=== PATIENT | female | born 1955 | race Asian ===

== ENCOUNTER 2019-08-06 11:21 | Emergency (ER) | payer OTHER ==
[~2019-08-06] VITALS: Ht 162.6 cm; Wt 53.1 kg
[2019-08-06 11:30] VITALS: Ht 162.6 cm; Wt 53.1 kg
[2019-08-06 13:18] VITALS: BP 108/66
== END 2019-08-06 13:18 | disposition home or self-care (01) ==
LOC: ED 11:21
DX: J10.1 Influenza due to other identified influenza virus with other respiratory manifestations (principal); E78.00 Pure hypercholesterolemia, unspecified
CPT/HCPCS: 87804